=== PATIENT | male | born 1965 | race Caucasian/White ===

== ENCOUNTER 2024-05-07 14:52 | Inpatient (IN) | payer OTHER ==
[~2024-05-07] VITALS: Ht 177.8 cm; Wt 91.8 kg
[2024-05-07] MEDS ORDERED: ALBUTEROL/IPRATROPIUM 3 ML NEB ONE (14:58)
[2024-05-07] MEDS ORDERED: VENTOLIN HFA18 GM INH (15:11)
[2024-05-07] MEDS ORDERED: ALBUTEROL/IPRATROPIUM 3 ML NEB INH ONE (15:15)
[2024-05-07] MEDS ORDERED: ACETAMINOPHEN 500 MG TAB PO ONE (15:15)
[2024-05-07] MEDS ORDERED: SODIUM CHLORIDE 0.9% 1,000 ML IV ONE (15:15)
[2024-05-07] MEDS ORDERED: KETOROLAC TROMETHAMINE 15 MG/ML VIAL IV ONE (15:15)
[2024-05-07] MEDS ORDERED: methylPREDNISolone SOD SUCC 125 MG/2 ML VIAL IV ONE (15:15)
[2024-05-07 15:21] LABS: BASOPHILS 0.5 % (0-2); HEMATOCRIT 48.4 % (35.0-50.0); HEMOGLOBIN 16.6 g/dL (12.0-18.0); LYMPHOCYTES 3.9 % (24-44); MCHC 34.2 g/dl (30-36); MCV 93.6 fl (81-99); MONOCYTES 10.5 % (0-12); NEUTROPHILS 85.1 % (39-80); PLATELET COUNT 248 K/uL (140-440); RBC 5.17 M/ul (4.3-5.7); RDW 13.9 (10.5-15.0)
[2024-05-07 15:35] LABS: ALBUMIN 3.9 g/dL (3.4-5.0); ALBUMIN/GLOBULIN RATIO 1.15 (1.1-2.4); ANION GAP 14.3 (7-21); BILIRUBIN, TOTAL 0.5 ng/dL (0.2-1.0); BUN/CREATININE RATIO 12.82 (6.0-28.6); CREATININE, SERUM 1.17 mg/dL (0.70-1.30); POTASSIUM 4.3 mmol/L (3.5-5.1); PROTEIN, TOTAL 7.3 g/dL (6.4-8.2)
[2024-05-07 15:36] LABS: CORONAVIRUS COVID-19 AG NEGATIVE (NEGATIVE); INFLUENZA A AG POSITIVE (NEGATIVE); INFLUENZA B AG NEGATIVE (NEGATIVE)
[2024-05-07] MEDS ORDERED: ALBUTEROL SULFATE 0.083% 3 ML VIAL INH ONE (16:15)
[2024-05-07] MEDS ORDERED: OSELTAMIVIR PHOSPHATE 75 MG CAP PO ONE (16:15)
--- OUTSIDE RECORDS SUMMARY | 2024-05-07 17:10 | XMS ---
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 Jazzy has no Care Guidelines for this patient. Philippe VISIT COUNT (12 MO.) 2 [facility] Vaishnavi Lagunas ([facility]lin Oliveros) [facility] TOTAL 3 NOTE: Visits indicate total known visits. ED/C VISIT TRACKING (12 MO.) 05/07/2024 14:53 [facility] COMPLAINT: - SHORTNESS OF BREATH 05/03/2024 17:59 [facility] Arlin WALL ([place]) TYPE: Emergency DIAGNOSES: - Acute ischemic heart disease, unspecified - Encounter for other general examination - Myocardial infarction type 2 - Unspecified psychosis not due to a substance or known physiological condition 05/03/2024 17:59 [facility] Arlin WALL ([place]) TYPE: Emergency DIAGNOSES: - Acute ischemic heart disease, unspecified - Encounter for other general examination - Myocardial infarction type 2 - Unspecified psychosis not due to a substance or known physiological condition - Homicidal - Psychotic Symptoms INPATIENT VISIT TRACKING (12 MO.) 05/03/2024 17:59 [facility] Arlin WALL (Arlin Oliveros) TYPE: Emergency DIAGNOSES: - Acute ischemic heart disease, unspecified - Encounter for other general examination - Myocardial infarction type 2 - Unspecified psychosis not due to a substance or known physiological condition [email or web address]
[2024-05-07] MEDS ORDERED: IBUPROFEN 800 MG TAB PO ONE (17:30)
[2024-05-07 17:42] LABS: LACTIC ACID, BLOOD 1.8 mmol/L (0.4-2.0)
[2024-05-07] MEDS ORDERED: GUAIFENESIN 10 ML UNIT DOSE CUP PO ONE (18:15)
[2024-05-07] MEDS ORDERED: SODIUM CHLORIDE 0.9% 1,000 ML IV SCH (19:00)
[2024-05-07] MEDS ORDERED: ACETAMINOPHEN 325 MG TAB PO PRN (19:00)
[2024-05-07] MEDS ORDERED: ondansetron HCL 4 MG/2 ML VIAL IV PRN (19:00)
[2024-05-07 20:14] VITALS: BP 151/104
[2024-05-07] MEDS ORDERED: ALBUTEROL SULFATE 0.083% 3 ML VIAL INH PRN (21:00)
[2024-05-07] MEDS ORDERED: guaiFENesin 600 MG TABCR PO PRN (21:00)
[2024-05-07] MEDS ORDERED: BENZONATATE 100 MG CAP PO PRN (21:00)
[2024-05-07] MEDS ORDERED: MELATONIN 3 MG TAB PO PRN (21:00)
[2024-05-08] VITALS (11 sets, daily range): BP systolic 158–191; BP diastolic 97–111
[2024-05-08 05:59] LABS: BASOPHILS 0.6 % (0-2); HEMATOCRIT 46.3 % (35.0-50.0); LYMPHOCYTES 4.4 % (24-44); MCH 32.3 (27-36); MCHC 34.4 g/dl (30-36); MCV 93.8 fl (81-99); MONOCYTES 5.1 % (0-12); NEUTROPHILS 89.9 % (39-80); PLATELET COUNT 224 K/uL (140-440); RBC 4.94 M/ul (4.3-5.7); RDW 13.7 (10.5-15.0)
[2024-05-08 06:15] LABS: ALBUMIN 3.5 g/dL (3.4-5.0); ALBUMIN/GLOBULIN RATIO 1.03 (1.1-2.4); ANION GAP 13.1 (7-21); BILIRUBIN, TOTAL 0.4 ng/dL (0.2-1.0); BUN/CREATININE RATIO 19.56 (6.0-28.6); CALCIUM 8.7 mg/dL (8.5-10.1); CREATININE, SERUM 0.92 mg/dL (0.70-1.30); MAGNESIUM 1.9 mg/dL (1.8-2.4); PHOSPHORUS, INORGANIC 2.3 mg/dL (2.5-4.9); POTASSIUM 4.1 mmol/L (3.5-5.1); PROTEIN, TOTAL 6.9 g/dL (6.4-8.2)
[2024-05-08] MEDS ORDERED: BUDESONIDE 0.5 MG/2 ML VIAL INH SCH ×2 (08:00→20:00)
[2024-05-08] MEDS ORDERED: ALBUTEROL/IPRATROPIUM 3 ML NEB INH SCH ×3 (08:00→20:00)
[2024-05-08] MEDS ORDERED: ENOXAPARIN SODIUM 40 MG/0.4 ML SYR SUB-Q SCH (09:00)
[2024-05-08] MEDS ORDERED: OSELTAMIVIR PHOSPHATE 75 MG CAP PO SCH (09:00)
[2024-05-08] MEDS ORDERED: predniSONE 20 MG TAB PO SCH (09:00)
[2024-05-08] MEDS ORDERED: SOD PHOS MONO/SOD PHOS DIBAS 1 EACH PACKET PO ONE (09:00)
[2024-05-08] MEDS ORDERED: PHARMACY RENAL DOSE ADJUSTMENT 1 DOSE MISC PO SCH (12:00)
[2024-05-08] MEDS ORDERED: lisinopriL 10 MG TAB PO SCH (12:07)
[2024-05-08] MEDS ORDERED: hydroCHLOROthiazide 25 MG TAB PO SCH (14:04)
[2024-05-08] MEDS ORDERED: AZITHROMYCIN 500 MG in DEXTROSE 5% 250 ML IV SCH (15:03)
[2024-05-08] MEDS ORDERED: POLYETHYLENE GLYCOL 3350 1 PACKET PO SCH (15:03)
[2024-05-08] MEDS ORDERED: SENNOSIDES/DOCUSATE 1 EA TAB PO SCH (15:04)
[2024-05-08] MEDS ORDERED: methylPREDNISolone SOD SUCC 40 MG/ML VIAL IV SCH (15:15)
[2024-05-08] MEDS ORDERED: MAGNESIUM SULFATE 2 GM/50 ML BAG IV ONE (15:15)
[2024-05-08] MEDS ORDERED: hydrALAZINE HCL 20 MG/ML VIAL IV PRN (21:00)
[2024-05-09] VITALS (9 sets, daily range): BP systolic 148–168; BP diastolic 90–110
[2024-05-09 05:49] LABS: BASOPHILS 0.2 % (0-2); HEMOGLOBIN 16.6 g/dL (12.0-18.0); LYMPHOCYTES 3.4 % (24-44); MCH 31.9 (27-36); MCHC 34.6 g/dl (30-36); MCV 92.2 fl (81-99); MONOCYTES 4.8 % (0-12); NEUTROPHILS 91.6 % (39-80); PLATELET COUNT 268 K/uL (140-440); RDW 13.7 (10.5-15.0)
[2024-05-09 06:06] LABS: ALBUMIN 3.6 g/dL (3.4-5.0); ALBUMIN/GLOBULIN RATIO 0.97 (1.1-2.4); ANION GAP 10.2 (7-21); BILIRUBIN, TOTAL 0.4 ng/dL (0.2-1.0); BUN/CREATININE RATIO 23.25 (6.0-28.6); CALCIUM 9.1 mg/dL (8.5-10.1); CREATININE, SERUM 0.86 mg/dL (0.70-1.30); POTASSIUM 4.2 mmol/L (3.5-5.1); PROTEIN, TOTAL 7.3 g/dL (6.4-8.2)
--- NOTE | 2024-05-09 22:57 | EKG ---
[facility] [address] [place], [place] [address] Signed Sinus tachycardia Biatrial enlargement Left bundle branch block Abnormal ECG No previous ECGs available Confirmed by Nichol Arellano MD () on 05/09/2024 10:57:34 PM Electronically Signed By: NICHOL ARELLANO MD 05/09/24 2257 PATIENT NAME: LUCY BURROUGHS Electrocardiogram DATE OF : 65 PHYSICIAN: NICHOL ARELLANO MD REPORT #: [id number] REPORT IS CONFIDENTIAL AND NOT TO BE RELEASED WITHOUT AUTHORIZATION
[2024-05-10] MEDS ORDERED: MAGNESIUM HYDROXIDE/AL HYDROX 30 ML CUP PO PRN (02:15)
[2024-05-10 05:33] VITALS: BP 168/112
[2024-05-10 05:35] VITALS: BP 168/112
[2024-05-10 05:55] LABS: HEMATOCRIT 47.6 % (35.0-50.0); HEMOGLOBIN 16.7 g/dL (12.0-18.0); LYMPHOCYTES 3.9 % (24-44); MCH 32.4 (27-36); MCHC 35.2 g/dl (30-36); MONOCYTES 6.8 % (0-12); NEUTROPHILS 89.3 % (39-80); PLATELET COUNT 307 K/uL (140-440); RBC 5.17 M/ul (4.3-5.7); RDW 13.6 (10.5-15.0)
[2024-05-10 06:07] LABS: ALBUMIN 3.6 g/dL (3.4-5.0); ALBUMIN/GLOBULIN RATIO 1.09 (1.1-2.4); ANION GAP 11.9 (7-21); BILIRUBIN, TOTAL 0.3 ng/dL (0.2-1.0); BUN/CREATININE RATIO 23.36 (6.0-28.6); CALCIUM 9.1 mg/dL (8.5-10.1); CREATININE, SERUM 1.07 mg/dL (0.70-1.30); POTASSIUM 3.9 mmol/L (3.5-5.1); PROTEIN, TOTAL 6.9 g/dL (6.4-8.2)
[2024-05-10] MEDS ORDERED: lisinopriL 10 MG TAB PO ONE (08:15)
[2024-05-10 10:41] VITALS: BP 161/101
[2024-05-10 10:51] VITALS: BP 161/101
[2024-05-10] MEDS ORDERED: OSELTAMIVIR PHO75 MG PO (11:07)
[2024-05-10] MEDS ORDERED: VENTOLIN HFA18 GM INH (11:08)
[2024-05-10] MEDS ORDERED: IPRAT-ALBUT 0.5-3 ML INH (11:08)
[2024-05-10] MEDS ORDERED: LISINOPRIL40 MG PO (11:09)
[2024-05-10] MEDS ORDERED: BENZONATATE100 MG PO (11:10)
[2024-05-10] MEDS ORDERED: HYDROCHLOROTHIA25 MG PO (11:10)
[2024-05-10] MEDS ORDERED: PREDNISONE20 MG PO (11:11)
[2024-05-10 11:24] VITALS: BP 158/95
== END 2024-05-10 13:10 | disposition home or self-care (01) | DRG 872 ==
LOC: ED 14:52 → MS 18:50
PROVIDERS: Emergency Medicine; ADMIT Family Medicine; ATTEND Family Medicine
DX: A41.89 Other specified sepsis (principal); J44.1 Chronic obstructive pulmonary disease with (acute) exacerbation; Z59.02 Unsheltered homelessness; J10.1 Influenza due to other identified influenza virus with other respiratory manifestations; I10 Essential (primary) hypertension; E83.39 Other disorders of phosphorus metabolism; K59.00 Constipation, unspecified; Z88.8 Allergy status to other drugs, medicaments and biological substances; Z79.51 Long term (current) use of inhaled steroids
CPT/HCPCS: 36415; 71045; 80053; 83605; 83735; 84100; 85025; 85060; 93005; 93010; 94640; 94668; 94760; 94799; A9270; J0360; J0456; J1650; J1885; J2919; J3475; J7030; J7060; J7512

== ENCOUNTER 2024-05-13 11:37 | Emergency (ER) | payer OTHER ==
[~2024-05-13] VITALS: Ht 177.8 cm; Wt 92.1 kg
[~2024-05-13 11:37] MED LIST: BENZONATATE100 MG PO; HYDROCHLOROTHIA25 MG PO; IPRAT-ALBUT 0.5-3 ML INH; LISINOPRIL40 MG PO; OSELTAMIVIR PHO75 MG PO; PREDNISONE20 MG PO; VENTOLIN HFA18 GM INH
--- OUTSIDE RECORDS SUMMARY | 2024-05-13 11:43 | XMS ---
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 Jazzy has no Care Guidelines for this patient. Philippe VISIT COUNT (12 MO.) [address] Vaishnavi Lagunas (Arlin Oliveros) TOTAL 4 NOTE: Visits indicate total known visits. ED/C VISIT TRACKING (12 MO.) 05/13/2024 11:37 [facility] TYPE: Emergency COMPLAINT: - SHORTNESS OF BREATH 05/07/2024 14:53 [facility] [place] TYPE: Emergency COMPLAINT: - SHORTNESS OF BREATH 05/03/2024 17:59 [facility] Arlin WALL ([place]) TYPE: Emergency DIAGNOSES: - Acute ischemic heart disease, unspecified - Encounter for other general examination - Myocardial infarction type 2 - Unspecified psychosis not due to a substance or known physiological condition 05/03/2024 17:59 [facility] Arlin WALL ([place]) TYPE: Emergency DIAGNOSES: - Acute ischemic heart disease, unspecified - Encounter for other general examination - Myocardial infarction type 2 - Unspecified psychosis not due to a substance or known physiological condition - Homicidal - Psychotic Symptoms INPATIENT VISIT TRACKING (12 MO.) 05/07/2024 18:50 [facility] [place] TYPE: Medical Surgical COMPLAINT: - INFLUENZA DIAGNOSES: - Allergy status to other drugs, medicaments and biological substances - Allergy status to other drugs, medicaments and biological substances - Chronic obstructive pulmonary disease with (acute) exacerbation - Chronic obstructive pulmonary disease with (acute) exacerbation - Constipation, unspecified - Constipation, unspecified - Essential (primary) hypertension - Essential (primary) hypertension - Influenza due to other identified influenza virus with other respiratory manifestations - Influenza due to other identified influenza virus with other respiratory manifestations - long term (current) use of inhaled steroids - skilled nursing (current) use of inhaled steroids - Other disorders of phosphorus metabolism - Other disorders of phosphorus metabolism - Other specified sepsis - Unsheltered homelessness - Unsheltered homelessness [facility]03[facility]2024 17[facility] DIAGNOSES: - Acute ischemic heart disease, unspecified - Encounter for other general examination - Myocardial infarction type 2 - Unspecified psychosis not due to a substance or known physiological condition [email or web address]
[2024-05-13] MEDS ORDERED: ALBUTEROL/IPRATROPIUM 3 ML NEB INH ONE (12:30)
[2024-05-13] MEDS ORDERED: DEXAMETHASONE SOD PHOS 10 MG/ML VIAL PO ONE (12:30)
[2024-05-13 12:47] LABS: BILIRUBIN, URINE NEGATIVE (negative); BLOOD/HGB, URINE NEGATIVE (Negative); KETONE, URINE NEGATIVE (Negative); LEUK ESTERASE, URINE NEGATIVE (negative); NITRITE, URINE NEGATIVE (negative)
[2024-05-13 12:54] LABS: BACTERIA, URINE 1+ /hpf (negative); CASTS, URINE NONE SEEN \\lpf; COLLECTION TYPE, URINE CLEAN CATCH; CRYSTALS, URINE NONE SEEN (0-1+); EPITHELIAL CELLS, URINE SQUAMOUS 1+ /lpf (0-1+); RED BLOOD CELLS, URINE 0-1 /hpf (0-5); REFLEX CULTURE, URINE No (No); WHITE BLOOD CELLS, URINE 0-1 /HPF (0-5)
[2024-05-13 13:02] LABS: AMPHETAMINES, URINE POSITIVE (NEGATIVE); BARBITURATES, URINE NEGATIVE (NEGATIVE); BENZODIAZEPINE, URINE NEGATIVE (NEGATIVE); BUPRENORPHINE, URINE NEGATIVE (NEGATIVE); CANNABINOID, URINE POSITIVE (NEGATIVE); COCAINE, URINE NEGATIVE (NEGATIVE); ECSTASY, URINE NEGATIVE (NEGATIVE); FENTANYL, URINE NEGATIVE (NEGATIVE); METHADONE, URINE NEGATIVE (NEGATIVE); OPIATES, URINE NEGATIVE (NEGATIVE); OXYCODONE, URINE NEGATIVE (NEGATIVE); PHENCYCLIDINE, URINE NEGATIVE (NEGATIVE)
[2024-05-13 13:15] VITALS: BP 173/126
[2024-05-13 14:16] LABS: N. GONORRRHOEAE BY PCR NOT DETECTED (NOT DETECT)
== END 2024-05-13 13:15 | disposition left against medical advice (07) ==
LOC: ED 11:37
PROVIDERS: Emergency Medicine
DX: F15.150 Other stimulant abuse with stimulant-induced psychotic disorder with delusions (principal); J44.89 Other specified chronic obstructive pulmonary disease; Z53.29 Procedure and treatment not carried out because of patient's decision for other reasons; Z88.8 Allergy status to other drugs, medicaments and biological substances; Z79.899 Other long term (current) drug therapy
CPT/HCPCS: 71045; 80307; 81001; 87491; 94640; 99285-25

== ENCOUNTER 2024-05-15 06:13 | Emergency (ER) | payer OTHER ==
[~2024-05-15] VITALS: Ht 177.8 cm; Wt 95.3 kg
--- OUTSIDE RECORDS SUMMARY | 2024-05-15 06:21 | XMS ---
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 Jazzy has no Care Guidelines for this patient. Philippe VISIT COUNT (12 MO.) 3 [facility] [address] [place] [address] Janneth (Arlin Oliveros) TOTAL 5 NOTE: Visits indicate total known visits. ED/C VISIT TRACKING (12 MO.) 05/15/2024 06:14 [facility] [place] TYPE: Emergency COMPLAINT: - MULT COMPLAINT 05/13/2024 11:37 [facility] [place] TYPE: Emergency COMPLAINT: - SHORTNESS OF BREATH 05/07/2024 14:53 [facility] [place] TYPE: Emergency COMPLAINT: - SHORTNESS OF BREATH 05/03/2024 17:[facility] DIAGNOSES: - Acute ischemic heart disease, unspecified - Encounter for other general examination - Myocardial infarction type 2 - Unspecified psychosis not due to a substance or known physiological condition 05/03/2024 17:59 [facility] TYPE: Emergency DIAGNOSES: - Acute ischemic heart disease, unspecified - Encounter for other general examination - Myocardial infarction type 2 - Unspecified psychosis not due to a substance or known physiological condition - Homicidal - Psychotic Symptoms INPATIENT VISIT TRACKING (12 MO.) 05/07/2024 18:50 [facility] TYPE: Medical Surgical COMPLAINT: - INFLUENZA DIAGNOSES: [...] influenza virus with other respiratory manifestations - [employer] (current) use of inhaled steroids - [employer] (current) use of inhaled steroids - Other disorders of phosphorus metabolism - Other disorders of phosphorus metabolism - Other specified sepsis - Unsheltered homelessness - Unsheltered homelessness 05/03/2024 17:[facility] DIAGNOSES: - Acute ischemic heart disease, unspecified - Encounter for other general examination - Myocardial infarction type 2 - Unspecified psychosis not due to a substance or known physiological condition [email or web address]
== END 2024-05-15 07:10 | disposition home or self-care (01) ==
LOC: ED 06:13
DX: J02.9 Acute pharyngitis, unspecified (principal); F91.8 Other conduct disorders; J44.89 Other specified chronic obstructive pulmonary disease; Z88.8 Allergy status to other drugs, medicaments and biological substances; Z79.52 Long term (current) use of systemic steroids; Z79.899 Other long term (current) drug therapy
CPT/HCPCS: 99282